=== PATIENT | female | born 1995 | race Caucasian/White ===

== ENCOUNTER 2022-06-13 15:18 | Outpatient (CLI) | payer OTHER ==
[2022-06-13] MEDS ORDERED: PRENATAL + DHA1 EAC1 PO (15:29)
[2022-06-13] MEDS ORDERED: DIALYVITE 800-1 EACH PO (15:29)
[2022-06-13] MEDS ORDERED: ADULT LOW DOSE81 M1 PO (15:30)
[2022-06-13] MEDS ORDERED: PLAQUENIL PO (15:31)
[2022-06-14] MEDS ORDERED: FERROUS SULFAT325 MG PO (07:15)
== END 2022-06-14 10:03 | disposition home or self-care (01) ==
LOC: OBS/DEL 15:18
PROVIDERS: ATTEND Specialist
DX: O44.52 Low lying placenta with hemorrhage, second trimester (principal); O09.612 Supervision of young primigravida, second trimester; D64.89 Other specified anemias; Z3A.22 22 weeks gestation of pregnancy; Z88.3 Allergy status to other anti-infective agents